=== PATIENT | male | born 1945 | race Two or more races ===

== ENCOUNTER 2018-10-18 18:10 | Inpatient (IN) | payer OTHER, MEDICARE ==
[~2018-10-18] VITALS: Ht 167.6 cm; Wt 68.6 kg
--- NOTE | 2018-10-18 18:41 | NUR ---
PT AMBULATED TO ROOM T1 WITH STEADY GAIT, PT A/AX4 HE HAS HAD TINGLING TO LEFT SIDE OF BODY, PT HAS NO S/S OF STROKE SYMPTOMS AT THIS TIME, NEGATIVE ARM DRIFT, NEG SLURRED SPEECH, FOLLOWS ALL COMMANDS. PT HAD JUST LEFT FROM [facility] [place] TO R/O STROKE. HX CABG 2011, PT DENIES C/P AT THIS TIME. NO SOB. DR ARAGON AT BEDSIDE SPEAKING WITH PT. PT PLACED ON CM ALL VITALS WNL. C/L IN PT'S LAP
--- NOTE | 2018-10-18 19:09 | NUR ---
REPORT GIVEN TO LELE RN RESUMING CARE OF PT AT THIS TIME
--- NOTE | 2018-10-18 19:10 | NUR ---
RECEIVED PT AWAKE, ALERT, RESPIRATIONS EVEN AND UNLABORED. EKG IN PROGRESS. FAMILY AT BEDSIDE.
[2018-10-18 19:21] LABS: BASOPHIL % 0.8 % (0-2); PLATELET COUNT 179 x10^3mcL (130-400); RED CELL DISTRIBUTION WIDTH 13.4 % (11.5-14.5)
[2018-10-18 19:44] LABS: T3 TOTAL 1.29 ng/mL
[2018-10-18 19:46] LABS: microscopic required? NO
--- NOTE | 2018-10-18 19:47 | NUR ---
PT TAKEN FOR CT SCAN BY [employer] FLOOR WORKER IN NO ACUTE DISTRESS. RESPIRATIONS EVEN AND UNLABORED.
[2018-10-18 19:50] LABS: urine erythrocyte NEGATIVE (NEGATIVE)
[2018-10-18 20:01] LABS: CALCIUM 9.5 mg/dL (8.5-10.1); CHLORIDE SERUM 101 mmol/L (98-107); GLUCOSE SERUM 87 mg/dL (74-106); SODIUM SERUM 138 mmol/L (136-145)
[2018-10-18 20:05] LABS: ALKALINE PHOSPHATASE 35 U/L (46-116); ALT/SGPT 27 U/L (16-63); AST/SGOT 25 U/L (15-37); BILIRUBIN TOTAL 1.34 mg/dL (0.20-1.00); CHOLESTEROL 165 mg/dL (<200); CHOLESTEROL/HDL RATIO 3.6; HDL CHOLESTEROL 46 mg/dL (40-60); LIPASE 234 IU/L (73-393); TOTAL PROTEIN, SERUM 7.9 g/dL (6.4-8.2); TRIGLYCERIDES 121 mg/dL (<150)
[2018-10-18 20:19] LABS: FREE T4 1.08 ng/dL (0.76-1.46); FREE THYROXINE INDEX 3.2 ug/dL (1.4-4.5); T4(THYROXINE) 8.9 ug/dL (4.7-13.3)
--- NOTE | 2018-10-18 20:29 | NUR ---
PT REMAINS FREE FROM S/S OF DISTRESS, AWAKE, ALERT, RESPIRATIONS EVEN AND UNLABORED. SAFETY PRECAUTIONS IN PLACE
--- NOTE | 2018-10-18 21:10 | NUR ---
PT AMBULATED TO AND FROM RESTROOM WITH STEADY GAIT AND NO ISSUES ENCOUNTERED.
[2018-10-18] MEDS ORDERED: LIPI10 PO (21:13)
[2018-10-18] MEDS ORDERED: ALDACTONE25 MG PO (21:14)
[2018-10-18] MEDS ORDERED: PLA75 PO (21:14)
[2018-10-18] MEDS ORDERED: METFORMIN HYDR500 M1 PO (21:15)
[2018-10-18] MEDS ORDERED: ISO10 PO (21:15)
[2018-10-18] MEDS ORDERED: XANAX0.25 MG PO (21:16)
[2018-10-18 22:07] LABS: PHOSPHOROUS 3.4 mg/dL (2.5-4.9)
--- NOTE | 2018-10-18 22:19 | NUR ---
RE[facility]IVED PT FROM [facility] [employer], CAME IN DUE TO TINGLING SENSATION ON THE LEFT SIDE OF THE BODY. AAOX4. DENIES HEADACHE/DIZZINESS. ABLE TO FOLLOW COMMANDS. HAND HAT LINING PASTER ARE EQUAL AND STRONG. NO FACIAL DROOP. NO ARM DRIFT. DENIES BLURRY VISION. NO SOB NOTED, LUNG SOUNDS CTA. DENIES CHEST PAIN/PRESSURE, SINUS BRADYCARDIA ON THE MONITOR, HR AT 56. DENIES ABDOMINAL DISCOMFORT. BOWEL SOUNDS ACTIVE. VOIDS. IV SITE ON THE RUE PATENT AND INTACT. SIDE RAILS UPX2. CALL LIGHT ON REACH. W/ SCAR ON THE MID-CHEST, NO DRAINAGE OR OPEN WOUNDS NOTED. FAMILY AT BEDSIDE. ENDORSED TO PRIMARY NURSE JOSÉ MIGUEL FOR CONTINUITY OF CARE
[2018-10-18 22:26] VITALS: BP 129/49
[2018-10-18 22:31] VITALS: Ht 167.6 cm; Wt 68.6 kg
--- NOTE | 2018-10-18 23:55 | NUR ---
XANAX GIVEN FOR ANXIETY.
--- NOTE | 2018-10-19 00:31 | NUR ---
PT RESTING WITH EYES CLOSED. NO SOB ON ROOM AIR. NO FACIAL GRIMACING. NO DISTRESS NOTED. SAFETY MEASURES IN PLACE. CALL LIGHT WITHIN REACH. SON AT BEDSIDE.
--- NOTE | 2018-10-19 05:25 | NUR ---
PT SLEPT AT LONG INTERVALS. NO SOB ON ROOM AIR. NO C/O SOB ON ROOM AIR. DENIES NUMBNESS OR TINGLING. NO C/O CHEST PAIN. NO DISTRESS NOTED. SAFETY MEASURES MAINTAINED. ALL NEEDS ATTENDED TO. CALL LIGHT WITHIN REACH. SON AT BEDSIDE. WILL ENDORSE CONTINUITY OF CARE TO ONCOMING RN.
[2018-10-19 06:06] VITALS: BP 104/34
[2018-10-19 06:23] LABS: CARBON DIOXIDE 28.9 mmol/L (21-32); CHLORIDE SERUM 105 mmol/L (98-107); CREATININE SERUM 1.1 mg/dL (0.7-1.3); GLUCOSE SERUM 108 mg/dL (74-106); POTASSIUM SERUM 3.9 mmol/L (3.5-5.1); SODIUM SERUM 140 mmol/L (136-145)
--- NOTE | 2018-10-19 07:51 | NUR ---
REPORT RECEIVED FROM CHASTITY VALDEZ. PATIENT IN BED WITH SON AT BEDSIDE. NOT IN ANY DISTRESS. ALERT ORIENTED X4. DENIES ANY DISCOMFORT AT THIS TIME. CALL GARCIA WITHIN REACH. BED LOW AND LOCKED. PLACED OVERBED TABLE NEXT TO HIM. INSTRUCTED TO CALL RN FOR ANY DISCOMFORT OR NEED FOR ASSISTANCE.
[2018-10-19 08:19] LABS: BASOPHIL % 0.5 % (0-2); PLATELET COUNT 203 x10^3mcL (130-400); RED CELL DISTRIBUTION WIDTH 13.7 % (11.5-14.5)
[2018-10-19 09:46] VITALS: BP 118/61
--- NOTE | 2018-10-19 09:55 | NUR ---
ECHO IN PROGRESS AT BEDSIDE. DENIES ANY DISCOMFORT AT THIS TIME. AT BEDSIDE. CALL LIGHT WITHIN REACH.
[2018-10-19 13:00] VITALS: BP 117/43
--- NOTE | 2018-10-19 14:16 | NUR ---
AT BEDSIDE. WANTS TO KNOW CAROTID US RESULTS. PLACED A PAGE TO DR SAUCEDO.
[2018-10-19] MEDS ORDERED: LISINOPRIL2.5 MG PO (14:39)
[2018-10-19 15:08] VITALS: BP 128/47
--- NOTE | 2018-10-19 16:05 | NUR ---
DISCHARGE TEACHINGS RE- MEDS, ACTIVITY, OK TO MD QUINCY FOLLOW UP APPOINTMENT AND WHEN TO CALL 911 OR GO TO ER. PATIENT VERBALIZED UNDERSTANDING. TELE AND HEPLOCK DISCONTINUED. 10 MIN PRESSURE APPLIED TO SITE. DRESSINGS DRY AND INTACT. ESCORTED OFF THE FLOOR BY DELORIS SERRANO. DENIES ANY CP.
== END 2018-10-19 15:49 | disposition home or self-care (01) | DRG 69 ==
LOC: ED 18:10 → DU 21:21
PROVIDERS: Specialist; ADMIT Family Medicine
DX: G45.9 Transient cerebral ischemic attack, unspecified (principal); I10 Essential (primary) hypertension; E11.9 Type 2 diabetes mellitus without complications; E78.5 Hyperlipidemia, unspecified; F41.9 Anxiety disorder, unspecified; Z95.5 Presence of coronary angioplasty implant and graft; Z98.49 Cataract extraction status, unspecified eye; Z95.1 Presence of aortocoronary bypass graft; Z90.89 Acquired absence of other organs; Z79.84 Long term (current) use of oral hypoglycemic drugs
CPT/HCPCS: 82962; 83880; 84439; J7030; Q0092